=== PATIENT | female | born 1980 | race Caucasian/White ===

== ENCOUNTER 2019-09-08 19:48 | Emergency (ER) | payer MEDICAID ==
[2019-09-08] MEDS ORDERED: KETOROLAC 60 MG/2 ML VIAL IM ONE (22:44)
== END 2019-09-08 22:55 | disposition home or self-care (01) ==
LOC: MED 19:48
DX: R51 Headache (principal); N39.0 Urinary tract infection, site not specified; E11.9 Type 2 diabetes mellitus without complications; Z79.899 Other long term (current) drug therapy
CPT/HCPCS: 96372; 99283; J1885

== ENCOUNTER 2021-09-05 15:28 | Emergency (ER) | payer MEDICAID ==
[~2021-09-05] VITALS: Ht 175.3 cm; Wt 96.6 kg
[2021-09-05 15:36] VITALS: BP 136/78
--- NOTE | 2021-09-05 16:01 | NUR ---
41 Y/O FEMALE BIB SELF. PATIENT PRESENTS TO ED WITH R EAR PAIN X3 DAYS. PT STATES HER HEARING WAS MUFFLED YEASTERDAY WITH YELLOWISH DISCHARGE. DENIES V/D; SKIN IS PINK/WARM/DRY; AAOX4 WITH EVEN AND STEADY GAIT; HR EVEN AND REGULAR; PT DENIES ANY FEVER, CP, SOB, OR COUGH AT THIS TIME; PT HAS DIZZINESS; PATIENT STATES PAIN OF 9/10 AT THIS TIME; RELIEF W/ IBUPROFEN (LAST TAKEN YESTERDAY) VSS; PATIENT POSITIONED FOR COMFORT; HOB ELEVATED; BEDRAILS UP X1; BED DOWN. ER MD MADE AWARE OF PT STATUS. HX: DM NKA MEDS: METFORMIN.
[2021-09-05] MEDS ORDERED: MECLIZINE 25 MG TAB PO ONE (16:10)
[2021-09-05] MEDS ORDERED: ONDA8TAB87 PO (16:24)
[2021-09-05] MEDS ORDERED: COROTSOL RIGHT EAR (16:24)
[2021-09-05] MEDS ORDERED: MECL-303 PO (16:24)
[2021-09-05] MEDS ORDERED: KETOROLAC 60 MG/2 ML VIAL IM ONE (16:30)
[2021-09-05 16:56] VITALS: BP 126/72
--- NOTE | 2021-09-05 16:58 | NUR ---
Patient discharged with v/s stable. Written and verbal after care instructions given and explained. Patient alert, oriented and verbalized understanding of instructions. Ambulatory with steady gait. All questions addressed prior to discharge. ID band removed. Patient advised to follow up with PMD. Rx of ZOFRAN, ANTIVERT,NEOMCIN given. Patient educated on indication of medication including possible reaction and side effects. Opportunity to ask questions provided and answered.
== END 2021-09-05 16:58 | disposition home or self-care (01) ==
LOC: MED 15:28
DX: H60.91 Unspecified otitis externa, right ear (principal); H81.391 Other peripheral vertigo, right ear; E11.9 Type 2 diabetes mellitus without complications; Z90.49 Acquired absence of other specified parts of digestive tract
CPT/HCPCS: 96372; 99283; J1885; J8597